=== PATIENT | male | born 1965 | race Caucasian/White ===

== ENCOUNTER 2023-02-12 07:43 | Outpatient (OUT) | payer BC, SELFPAY ==
--- NOTE | 2023-02-12 07:56 | ECG_ITS ---
The [facility] Test Date: 2023-02-12 Pat Name: Marc Watkins Department: Room: - Gender: Male Trust Administrator: : 1965 Requested By: [id number] Order Number: [id number] Reading MD: ARIANA ELIZABETH Measurements Intervals [place] Rate: 60 P: WA: 240 QRS: 14 QRSD: 99 T: 29 QT: 404 QTc: 407 Interpretive Statements Sinus bradycardia with first degree AV block No previous ECG available for comparison Electronically Signed On 02-13-2023 6:58:21 EDT by ARIANA ELIZABETH
[2023-02-12 09:28] LABS: Basophils Percent Auto 0.2 % (0.2-2.0); Eosinophils Absolute Auto 0.1 10^3/uL (0.0-0.7); Eosinophils Percent Auto 2.2 % (0.9-7.0); Hematocrit 48.5 % (42.0-54.0); Hemoglobin 16.5 g/dL (14.0-18.0); Immature Granulocytes Abs Auto 0.01 10^3/uL (0.00-0.03); Immature Granulocytes Pct Auto 0.2 % (0.0-0.5); Lymphocytes Absolute Auto 1.7 10^3/uL (1.2-3.8); Lymphocytes Percent Auto 30.6 % (20.5-60.0); Mean Corpuscular Hemoglobin 31.2 pg (25.9-34.0); Mean Corpuscular Volume 91.7 fL (80.0-94.0); Mean Platelet Volume 9.3 fL (9.5-13.5); Monocytes Absolute Auto 0.4 10^3/uL (0.3-0.8); Monocytes Percent Auto 8.1 % (1.7-12.0); Neutrophils Absolute Auto 3.2 10^3/uL (1.4-6.5); Neutrophils Percent Auto 58.7 % (43.0-75.0); Platelet Count 165 10^3/uL (150-450); Red Blood Count 5.29 10^6/uL (4.70-6.10); Red Cell Distribution Width 12.4 % (11.0-15.0); White Blood Count 5.4 10^3/uL (4.0-11.0)
[2023-02-12 09:38] LABS: Anion Gap 11.6; BUN Creatinine Ratio 14.4; Calcium 9.6 mg/dL (8.5-10.1); Carbon Dioxide 31.6 mmol/L (21.0-32.0); Chloride 100 mmol/L (98-107); Estimated GFR (African America >60 (>=60); Estimated GFR (Non-African Ame >60 (>=60); Glucose 136 mg/dL (74-106); Potassium 4.2 mmol/L (3.5-5.1); Sodium 139 mmol/L (136-145)
== END 2023-02-12 07:44 | disposition home or self-care (01) ==
LOC: PST 07:47
PROVIDERS: Urology
DX: Z01.810 Encounter for preprocedural cardiovascular examination (principal); Z01.812 Encounter for preprocedural laboratory examination; N20.0 Calculus of kidney; I10 Essential (primary) hypertension; E11.9 Type 2 diabetes mellitus without complications
CPT/HCPCS: 36415; 80048; 85025; 93005

== ENCOUNTER 2023-02-25 12:25 | Day surgery (SDC) | payer BC, SELFPAY ==
[2023-02-12 08:31] VITALS: BP 151/98; PULSE 69; RESP 16; TEMP 36.6; O2SAT 96; BMI 33.0
[2023-02-25] VITALS (12 sets, daily range): BP systolic 120–170; BP diastolic 84–110; PULSE 69–78; RESP 16–20; TEMP 36.4–36.9; O2SAT 93–98; BMI 33.0
--- NOTE | 2023-02-25 12:30 | XR_ITS ---
The [address] [address] Patient Name: LETICIA DAVIES MRN: [id number] date: 1965 Sex: M Assigned Patient Location: [facility] Current Patient Location: [facility] Accession/Order Number: [id number] Exam Date: 02/25/2023 12:30 Report Date: 02/25/2023 12:50 At the request of: GODFREY PADILLA Procedure: XR abdomen 1V EXAMINATION: XR abdomen 1V HISTORY: kidney stone , left COMPARISON: No relevant comparison available. FINDINGS: KIDNEY/URETER - RIGHT: No visible renal or ureteral calcifications. KIDNEY/URETER - LEFT: 14 mm stone projecting over superior pole of kidney. 4 mm stone suspected within inferior pole. PELVIS: 2 small calcifications within lower right pelvis; phleboliths versus distal ureteral stones. BOWEL: No abnormal dilation or deviation. BONES: No acute abnormality. OTHER: Negative. No abnormal gaseous collections. IMPRESSION: 1. Large 14 mm stone suspected within superior pole left kidney. Small stone within inferior pole. Unremarkable left ureter 2. No convincing right kidney stones. Electronically authenticated by: ESTER GARCIA Date: 02/25/2023 12:50
[2023-02-25 13:14] LABS: Glucometer 101 mg/dL (74-106)
[2023-02-25] MEDS: LACTATED RINGER'S SOLUTION 1,000 ML 50 ML IV ×2 (13:16→15:44)
[2023-02-25] MEDS: CEFAZOLIN SODIUM/DEXTROSE,ISO 2 GM/50 ML PIGGYBACK IV (13:17)
--- NOTE | 2023-02-25 14:57 | PM.URSON ---
Urology Surgery Operative Note Operative Note Procedure Date: 02/25/23 Pre-op Diagnosis: Left nephrolithiasis Post-op Diagnosis: Same Procedures performed: Left extracorporeal shock wave lithotripsy Anesthesia: GETA (LMA, Dr. Whaley) Primary Surgeon: Anca Flores Complications: none Estimated blood loss (mL): 0 Findings: Radiopaque left upper pole stone ~ 1.5 cm underwent uncomplicated ESWL Specimens: none Drains: none Indications for Procedures: 57 year old male with previously diagnosed left upper pole 10x5mm renal stone, adjacent 5 mm stone, and 4 mm left lower pole stone. The patient was evaluated in clinic and deemed a candidate for left extracorporeal shock wave lithotripsy of the upper pole stone. Risks were discussed to include but not limited to bleeding, pain, infection, damage to surrounding structures, inability to treat the stone, residual fragments, obstruction and need for additional procedures. Detailed description of Procedure: After informed consent was obtained, the patient was brought to the operating room and placed on the lithotripsy bed in supine position. Sequential compression devices were placed on bilateral lower extremities. The patient received the appropriate dose of preoperative IV antibiotics and general anesthesia LMA was induced. An operative time out was performed confirming the patient's identity, procedure, laterality and safety checks. The patient was positioned with the Siemens Modularis Variostar lithotripter head on the left flank. The larger upper pole stone was triangulated using fluoroscopy. A total of 3000 shocks were provided and the stone was seen to fragment well. A 2 minute pause was taken after 500 shocks. The procedure was concluded and patient was awakened from anesthesia in stable condition. The patient tolerated the procedure well without complications. Plan: Discharge home with strainer and tamsulosin. Follow up in 4 weeks with [facility]. Other Provider present: No Attending Doc Confirm Attending Attestation: Yes
--- NOTE | 2023-02-25 16:19 | PC.NURSE ---
Up to bathroom and voids bloody urine without difficulty; urine strained and negative for calculi; pt instructed to follow-up with his physician regarding elevated blood pressure and verbalized understanding
== END 2023-02-25 16:22 | disposition home or self-care (01) ==
PROVIDERS: Visit Provider Urology
PROC: (CPT 50590; principal; 2023-02-25 13:30)
DX: N20.0 Calculus of kidney (principal); I10 Essential (primary) hypertension; E11.9 Type 2 diabetes mellitus without complications; E78.5 Hyperlipidemia, unspecified; G47.33 Obstructive sleep apnea (adult) (pediatric); E55.9 Vitamin D deficiency, unspecified; Z90.49 Acquired absence of other specified parts of digestive tract; Z79.84 Long term (current) use of oral hypoglycemic drugs; Z79.899 Other long term (current) drug therapy; R35.1 Nocturia
CPT/HCPCS: 50590; 36415; 36416; 74018; 82948; J2704

== ENCOUNTER 2023-06-24 09:58 | Outpatient (OUT) | payer BC, SELFPAY ==
[2023-06-24 10:36] LABS: Basophils Percent Auto 0.2 % (0.2-2.0); Eosinophils Absolute Auto 0.2 10^3/uL (0.0-0.7); Eosinophils Percent Auto 4.1 % (0.9-7.0); Hematocrit 42.6 % (42.0-54.0); Hemoglobin 14.6 g/dL (14.0-18.0); Lymphocytes Absolute Auto 1.7 10^3/uL (1.2-3.8); Lymphocytes Percent Auto 32.8 % (20.5-60.0); Mean Corpuscular HGB Conc 34.3 g/dL (29.9-35.2); Mean Corpuscular Hemoglobin 31.9 pg (25.9-34.0); Mean Corpuscular Volume 93.2 fL (80.0-94.0); Mean Platelet Volume 8.9 fL (9.5-13.5); Monocytes Absolute Auto 0.7 10^3/uL (0.3-0.8); Monocytes Percent Auto 13.8 % (1.7-12.0); Neutrophils Absolute Auto 2.5 10^3/uL (1.4-6.5); Neutrophils Percent Auto 49.1 % (43.0-75.0); Platelet Count 159 10^3/uL (150-450); Red Blood Count 4.57 10^6/uL (4.70-6.10); Red Cell Distribution Width 12.3 % (11.0-15.0); White Blood Count 5.1 10^3/uL (4.0-11.0)
[2023-06-24 10:57] LABS: INR 0.99; Partial Thromboplastin Time 27.2 sec (22.3-36.2); Prothrombin Time 10.5 sec (9.0-11.6)
[2023-06-24 11:05] LABS: Anion Gap 12.8; Calcium 8.6 mg/dL (8.5-10.1); Carbon Dioxide 26.7 mmol/L (21.0-32.0); Chloride 104 mmol/L (98-107); Estimated GFR (African America >60 (>=60); Estimated GFR (Non-African Ame >60 (>=60); Glucose 125 mg/dL (74-106); Potassium 3.5 mmol/L (3.5-5.1); Sodium 140 mmol/L (136-145)
== END 2023-06-24 09:59 | disposition home or self-care (01) ==
PROVIDERS: Visit Provider Urology
DX: Z01.812 Encounter for preprocedural laboratory examination (principal); N20.0 Calculus of kidney; I10 Essential (primary) hypertension
CPT/HCPCS: 80048; 85025; 85610; 85730

== ENCOUNTER 2023-07-08 10:41 | Day surgery (SDC) | payer BC, SELFPAY ==
[2023-06-24 10:27] VITALS: BP 144/97; PULSE 71; RESP 18; TEMP 36.3; O2SAT 97; BMI 33.7
[2023-07-08] VITALS (10 sets, daily range): BP systolic 115–133; BP diastolic 76–87; PULSE 50–78; RESP 11–21; TEMP 36.4–36.9; O2SAT 95–98; BMI 32.6
--- NOTE | 2023-07-08 10:45 | XR_ITS ---
The [address] [address] Patient Name: LETICIA DAVIES MRN: [id number] date: 1965 Sex: M Assigned Patient Location: [facility] Current Patient Location: [facility] Accession/Order Number: [id number] Exam Date: 07/08/2023 10:55 Report Date: 07/08/2023 11:37 At the request of: GODFREY PADILLA Procedure: XR abdomen 1V EXAM: XR abdomen 1V HISTORY: kidney stone COMPARISON: None. TECHNIQUE: AP view of the abdomen. FINDINGS: Nonobstructive bowel gas pattern is noted. There are multiple punctate calculi of both kidneys. Largest on the left measures up to 9 mm. The osseous structures are intact. XR/XR abdomen 1V IMPRESSION: Nonobstructive bowel gas pattern. Bilateral nephrolithiasis. Electronically authenticated by: GARRICK ORR Date: 07/08/2023 11:37
[2023-07-08 11:18] LABS: Glucometer 125 mg/dL (74-106)
[2023-07-08] MEDS: LACTATED RINGER'S SOLUTION 1,000 ML 50 ML IV (11:22)
[2023-07-08] MEDS: CEFAZOLIN SODIUM/DEXTROSE,ISO 2 GM/50 ML PIGGYBACK IV (12:00)
--- NOTE | 2023-07-08 12:46 | PM.URSON ---
Urology Surgery Operative Note Operative Note Procedure Date: 07/08/23 Time Out Performed: yes Pre-op Diagnosis: Left kidney stones Post-op Diagnosis: same as pre-op Procedures performed: Left extracorporeal shockwave lithotripsy Anesthesia: General-LMA (Dr. Whaley) Primary Surgeon: Anca Flores Complications: none Estimated blood loss (mL): 0 Findings: Radiopaque LUP stone fragmented nicely with 2300 shocks. Procedure ended prior to 3000 due to bradycardia not responsive to medications. Specimens: none Indications for Procedures: 58 year old male was evaluated in clinic and deemed a candidate for left extracorporeal shock wave lithotripsy, second stage given starting large stone burden 14 mm, now 8x3 mm. Risks were discussed to include but not limited to bleeding, pain, infection, damage to surrounding structures, inability to treat the stone, residual fragments, obstruction and need for additional procedures. Detailed description of Procedure: After informed consent was obtained, the patient was brought to the operating room and placed on the lithotripsy bed in supine position. Sequential compression devices were placed on bilateral lower extremities. The patient received the appropriate dose of preoperative IV antibiotics and general anesthesia LMA was induced. An operative time out was performed confirming the patient's identity, procedure, laterality and safety checks. The patient was positioned with the Dornier Delta 3 lithotripter head on the left flank. The stone was triangulated using fluoroscopy. A total of 2300 shocks were provided and the stone was seen to fragment nicely. The procedure was concluded early due to bradycardia and anesthesia concerns. Patient was awakened from anesthesia in stable condition. The patient tolerated the procedure well without complications. Plan: Discharge home with strainer and tamsulosin. Follow up in 4 weeks with KUB. Will call with results
== END 2023-07-08 13:40 | disposition home or self-care (01) ==
PROVIDERS: Visit Provider Urology
PROC: (CPT 50590; principal; 2023-07-08 12:00)
DX: N20.0 Calculus of kidney (principal); I10 Essential (primary) hypertension; R00.1 Bradycardia, unspecified; I97.88 Other intraoperative complications of the circulatory system, not elsewhere classified; G47.33 Obstructive sleep apnea (adult) (pediatric); E11.9 Type 2 diabetes mellitus without complications; Z79.84 Long term (current) use of oral hypoglycemic drugs; N40.1 Benign prostatic hyperplasia with lower urinary tract symptoms; E78.5 Hyperlipidemia, unspecified; E55.9 Vitamin D deficiency, unspecified; Z90.49 Acquired absence of other specified parts of digestive tract
CPT/HCPCS: 50590; 36415; 36416; 74018; 82948; J2704

== ENCOUNTER 2023-09-25 10:49 | Outpatient (OUT) | payer BC, SELFPAY ==
--- NOTE | 2023-09-25 11:09 | XR_ITS ---
The [address] [address] Patient Name: LETICIA DAVIES MRN: [id number] date: 1965 Sex: M Assigned Patient Location: RAD Current Patient Location: [facility] Accession/Order Number: [id number] Exam Date: 09/25/2023 11:10 Report Date: 09/25/2023 11:42 At the request of: NON-STAFF PHYSICIAN Procedure: XR shoulder RT min 2V EXAM: Right shoulder. HISTORY: . M25.511 pain in right shoulder . COMPARISON: None. TECHNIQUE: 3 views FINDINGS: No fracture or dislocation of the right shoulder is noted. Early arthritic changes of the humeral head and right AC joint are noted. Surrounding soft tissues are unremarkable. 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 Electronically authenticated by: JESSICA MATTHEWS Date: 09/25/2023 11:42
== END 2023-09-25 10:50 | disposition home or self-care (01) ==
LOC: RAD 10:52
DX: N20.0 Calculus of kidney (principal); M25.511 Pain in right shoulder
CPT/HCPCS: 73030; 74018

== ENCOUNTER 2023-09-25 10:58 | Outpatient (OUT) | payer BC, SELFPAY ==
--- NOTE | 2023-09-25 11:07 | XR_ITS ---
The [address] [address] Patient Name: LETICIA DAVIES MRN: [id number] date: 1965 Sex: M Assigned Patient Location: LAB Current Patient Location: [facility] Accession/Order Number: [id number] Exam Date: 09/25/2023 11:10 Report Date: 09/25/2023 11:50 At the request of: GODFREY PADLILA Procedure: XR abdomen 1V EXAM: XR abdomen 1V HISTORY: kidney stone COMPARISON: 07/08/23 TECHNIQUE: AP view of the abdomen. FINDINGS: Nonobstructive bowel gas pattern is noted. Stable bilateral renal calculi. The osseous structures are intact. XR/XR abdomen 1V IMPRESSION: Nonobstructive bowel gas pattern. Stable bilateral nephrolithiasis. Electronically authenticated by: GARRICK ORR Date: 09/25/2023 11:50
== END 2023-09-25 10:59 | disposition home or self-care (01) ==
PROVIDERS: Visit Provider Urology
DX: N20.0 Calculus of kidney (principal)
CPT/HCPCS: 74018